=== PATIENT | male | born 1995 | race Caucasian/White ===

== ENCOUNTER 2018-10-02 13:06 | Day surgery (SDC) | payer OTHER ==
[~2018-10-02] VITALS: Ht 195.6 cm; Wt 86.9 kg
[2018-10-02] MEDS ORDERED: no meds (14:38)
[2018-10-02 14:41] VITALS: Ht 195.6 cm; Wt 86.9 kg
[2018-10-02 15:15] VITALS: BP 121/69; PULSE 70; RESP 8
[2018-10-02] MEDS ORDERED: LIDOCAINE 4% SOLUTION 50 ML BTL ONE (15:29)
[2018-10-02] MEDS ORDERED: MIDAZOLAM 1 MG/ML 2 ML INJ ONE ×2 (16:00)
[2018-10-02] MEDS ORDERED: FENTAnyl 50 MCG/ML VIAL ONE (16:00)
[2018-10-02 16:10] VITALS: BP 115/61; PULSE 58; RESP 20
== END 2018-10-02 16:40 | disposition home or self-care (01) ==
LOC: GIL 13:06
PROVIDERS: ATTEND Internal Medicine
DX: K44.9 Diaphragmatic hernia without obstruction or gangrene (principal); K29.60 Other gastritis without bleeding
CPT/HCPCS: 43239; 88305; 88312; J2250; J3010; Z7610